=== PATIENT | male | born 1985 | race Caucasian/White ===

== ENCOUNTER 2017-12-05 19:00 | Emergency (ER) | payer OTHER ==
[~2017-12-05 19:00] MED LIST: Iopamidol 370 76% 125 ML VIAL FS ONE; Sodium Chloride Irrig Solution 250 ML BOT ONE
[2017-12-05] MEDS ORDERED: Lidocaine 1% w/Epinephrine 1:100K 30 ML VIAL ONE (19:07)
[2017-12-05] MEDS ORDERED: Lidocaine 1% (PF) 30 ML VIAL ONE (19:08)
[2017-12-05 19:15] LABS: #Basophils 0.1 thou/uL (0.0-0.2); #Eosinphils 0.2 thou/uL (0.0-0.7); #Lymphocytes 2.6 thou/uL (1.20-3.40); #Monocytes 0.7 thou/uL (0.11-0.59); #Neutrophils 8.6 thou/uL (1.40-6.50); %Basophils 0.8 % (0.0-1.0); %Eosinophils 1.7 % (0.0-10.0); %Lymphocytes 21.2 % (21.0-51.0); %Monocytes 5.9 % (0.0-10.0); %Neutrophils 70.4 % (42.0-75.0); Hemoglobin 13.9 g/dL (14.0-18.0); Mean Corpuscular HGB CONC 34.2 g/dL (32.0-36.0); Mean Corpuscular Hemoglobin 28.6 pg (27.0-31.0); Mean Corpuscular Volume 83.8 fL (78.0-98.0); Mean Platelet Volume 6.8 fL (7.4-10.4); Platelet Count 223 thou/uL (130-400); RBC Distribution Width 10.8 % (11.5-14.5); Red Blood Cell (RBC) Count 4.86 mill/uL (4.70-6.10); White Blood Cell (WBC) Count 12.2 thou/uL (4.8-10.8)
[2017-12-05 19:21] LABS: INR-International Normal Ratio 1.1; Prothrombin Time 14.5 SEC (12.0-14.7)
[2017-12-05 19:32] LABS: ALT (SGPT) 46 U/L (8-55); AST (SGOT) 44 U/L (5-34); Albumin 4.4 g/dL (3.5-5.0); Alkaline Phosphatase 42 U/L (40-150); Anion Gap 15 mmol/L (10-20); BUN (Urea Nitrogen) 25 mg/dL (8.9-20.6); Bilirubin, Total 0.4 mg/dL (0.2-1.2); Calc. Creatinine Clearance 0 mL/min (70-130); Calcium 9.2 mg/dL (7.8-10.44); Carbon Dioxide 28 mmol/L (22-29); Chloride 102 mmol/L (98-107); Estimated GFR-MDRD Greater than 90; Globulin 2.7 g/dL (2.4-3.5); Glucose 130 mg/dL (70-105); Potassium 3.8 mmol/L (3.5-5.1); Protein, Total 7.1 g/dL (6.0-8.3); Sodium 141 mmol/L (136-145)
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
--- NOTE | 2017-12-05 20:17 | RAD ---
RIGHT KNEE RADIOGRAPHS FOUR VIEWS: 12/05/17 PROVIDED CLINICAL HISTORY: Injury. FINDINGS: On the lateral view, there is suggestion of a fat fluid level which can be seen in the setting of an intra-articular fracture. No definite radiographically apparent fracture however. Alignment appears a natomic. Joint spaces appear preserved. IMPRESSION: Findings suggesting lipohemarthrosis. Consider correlation with CT to evaluate for the possibility of occult intra-articular fracture. POS: [facility]
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
[2017-12-05] MEDS ORDERED: Triple Antibiotic Oint 1 GM Packet ONE (21:07)
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
[2017-12-05] MEDS ORDERED: CEFAZOLIN 1 GM VIAL ONE (21:32)
[2017-12-05] MEDS ORDERED: HYDROmorphone 0.5 MG/0.5 ML SYRINGE ONE (22:51)
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
== END 2017-12-05 23:25 | disposition short-term general hospital (02) ==
LOC: MADERS 19:00
DX: S92.341A Displaced fracture of fourth metatarsal bone, right foot, initial encounter for closed fracture (principal); S72.431A Displaced fracture of medial condyle of right femur, initial encounter for closed fracture; S92.001A Unspecified fracture of right calcaneus, initial encounter for closed fracture; S01.81XA Laceration without foreign body of other part of head, initial encounter; V89.2XXA Person injured in unspecified motor-vehicle accident, traffic, initial encounter
CPT/HCPCS: 12011; 36415; 70450; 71045; 72170; 80053; 85025; 85610; 93005; 96374; 96375; 99292; G0390; J0690; J1170; J2001